=== PATIENT | female | born 1980 | race Caucasian/White ===

== ENCOUNTER 2022-02-14 14:28 | Emergency (ER) | payer BC, SELFPAY ==
[2022-02-14 16:27] VITALS: BP 123/68; PULSE 123; RESP 18; TEMP 38.4; O2SAT 98; BMI 26.2
--- NOTE | 2022-02-14 16:33 | ED_ITS ---
HPI - URI/Sore Throat General Chief Complaint: Upper Respiratory Symptoms Stated Complaint: cold/flu symptoms Time Seen by Provider: 02/14/22 16:31 Source: patient Mode of arrival: ambulatory Limitations: no limitations History of Present Illness HPI Narrative: 41-year-old female presents with 3 days of upper respiratory symptoms and 1 day of fevers. States that she has had positive flu contacts. She has body aches, fatigue, nausea, vomiting, and fevers. MD elicited complaint: fever, cough and nasal congestion Onset (ago): day(s) (3) Consistency: constant and progressively worsening Severity: moderate Description of mucous: clear Able to tolerate fluids by mouth: Yes Exacerbating factors: exertion Relieving factors: nothing Context: sick contacts Associated symptoms: fever, chills, voice changes, myalgias, headache, rhinorrhea, nasal congestion, sore throat, cough, nausea and vomiting Treatments prior to arrival: none Related Data Previous Rx's Medication Instructions Recorded ondansetron 4 mg disintegrating 4 mg PO Q8H PRN nausea and 02/15/22 tablet vomiting #20 tabs Allergies Allergy/AdvReac Type Severity Reaction Status Date / Time codeine Allergy Anaphylaxis Verified 02/14/22 16:44 Review of Systems Review of Systems: Constitutional: positive Fever, positive Chills, positive fatigue, positive Malaise ENT/Mouth: positive sore throat, positive runny nose Eyes: No Discharge Cardiovascular: No Chest Pain, No SOB Respiratory: Positive Cough, No Sputum, No Wheezing, No Dyspnea Gastrointestinal: Positive Nausea, positive Vomiting, No Diarrhea Musculoskeletal: positive Myalgia Skin: No rash Neuro: Positive Headache Yes all other systems are reviewed and are negative PMFSH Past Medical History Attestation statement: The following information was validated with the patient. Source: old records reviewed Medical History No known health problems Social History Social History Advance Directives: No Advance Directives Information Provided: Yes Patient : No Physical Exam Vital Signs: Vital Signs: Last Vital Signs Temp 101.1 F H 02/14/22 16:27 Pulse 123 H 02/14/22 16:27 Resp 18 02/14/22 16:27 BP 123/68 02/14/22 16:27 Pulse Ox 98 01/06/23 16:27 O2 Del Method 02/14/22 16:27 BMI result Body Mass Index 26.2 Appearance: Alert. Oriented X3. Moderate distress. Febrile Eyes: Pupils equal, round and reactive to light. ENT: Pharynx normal. Neck: Normal inspection. Neck supple. CVS: Tachycardic heart rate and rhythm. Pulses normal. Respiratory: No respiratory distress. Breath sounds normal. Abdomen: Soft and nontender. Skin: Skin warm and dry. Normal skin color. Normal skin turgor. Extremities: Gait balanced and coordinated Neuro: No motor deficit. No sensory deficit. Cranial nerves 2-12 intact Course Course Course Narrative: 41-year-old female presents for 3 days of upper respiratory symptoms consistent with influenza a with influenza A contacts. Patient is tachycardic and febrile, most likely viral, will order Tylenol. 17:21 patient discharged home, will call her with her results. Patient influenza positive. Medications Administered Discontinued Medications Generic Name Dose Route Start Last Admin Trade Name Freq PRN Reason Stop Dose Admin Acetaminophen 650 mg 02/14/22 16:34 02/14/22 16:41 Acetaminophen 325 Mg Tablet PO 02/14/22 16:35 650 mg ONCE ONE Administration Medical Decision Making Differential Diagnosis Differential Diagnoses: The differential diagnosis associated with the presentation includes COVID influenza RSV pneumonia Lab Data [facility] Lab Attestation statement: I reviewed the patient's lab results. Labs: Lab Results 02/14/22 Range/Units 16:38 Influenza Type A (PCR) POSITIVE A (Negative) Influenza Type B (PCR) NEGATIVE (Negative) RSV RNA Qual (PCR) NEGATIVE (Negative) SARS-CoV-2 RNA (RT-PCR) NEGATIVE (Negative) Discharge Plan Discharge Clinical Impression: Influenza, Viral infection Patient Disposition: Home, Self-Care Instructions: Influenza (ED), Viral Syndrome (ED) Additional Instructions: You were evaluated for upper respiratory symptoms. Your test results are pending. I will call you with your results. Please treat yourself as if your influenza positive, as you had multiple influenza contacts. Drink plenty of fluids. Alternate Tylenol 650 mg every 6 hours and Motrin 600 mg every 6 hours as needed for pain and fever management. Consider taking these medications 3 hours apart so you have pain and fever management every 3 hours. Write down what time you take these medications to prevent accidental overdose. Thank you for choosing this emergency department for evaluation. Please follow-up with primary care physician as needed. Return to the emergency department for any new, concerning, or worsening symptoms. Prescriptions: New ondansetron 4 mg tablet,disintegrating 4 mg PO Q8H PRN (Reason: nausea and vomiting) Qty: 20 0RF Stand Alone Forms: Work/School Release Interventions: ED Discharge Assessment Last Done: 02/14/22 17:45 Discharge Date/Time: 02/14/22 17:46
[2022-02-14] MEDS: Acetaminophen 325 MG TABLET 650 MG PO (16:41)
[2022-02-14 17:45] LABS: Influenza A PCR POSITIVE (Negative); Influenza B PCR NEGATIVE (Negative); Resp Syncy Virus RNA Qual PCR NEGATIVE (Negative); SARS COV2 PCR INHOUSE NEGATIVE (Negative)
== END 2022-02-14 17:46 | disposition home or self-care (01) ==
PROVIDERS: Emergency Provider Emergency Medicine
DX: J10.1 Influenza due to other identified influenza virus with other respiratory manifestations (principal); R50.9 Fever, unspecified; M79.10 Myalgia, unspecified site; R05.9 Cough, unspecified; R51.9 Headache, unspecified; Z20.822 Contact with and (suspected) exposure to COVID-19; Z20.828 Contact with and (suspected) exposure to other viral communicable diseases
CPT/HCPCS: 0241U; 99283

== ENCOUNTER 2024-03-02 06:59 | Emergency (ER) | payer OTHER, BC, SELFPAY ==
[2024-03-02 07:17] VITALS: BP 132/86; PULSE 106; RESP 16; TEMP 36.8; O2SAT 97; BMI 24.4
--- OUTSIDE RECORDS SUMMARY | 2024-03-02 09:31 | XMS_ITS | Clinical Summary ---
Author Organization [facility] it Address [address] [place] [address] Care Team Providers Care Title Checker Name Role Phone Judy Luz MD Primary Care Provider [phone] Allergies Active Allergy Reactions Criticality Noted Date Comments Codeine Phosphate Hives 03/23/2007 Hydrocodone-Acetaminophen Hives,Other,Rash Medium 10/2017 Lamotrigine Hives,Rash Medium 11/17/2017 Medications Medication Sig Dispensed Refills Start Date End Date Status LEVONORGESTREL UTRN by Intrauterine route. Active triamcinolone (KENALOG) 0.1 % cream APPLY THIN LAYER TOPICALLY TO THE AFFECTED AREA TWICE DAILY 12/26/2020 Active Active Problems Problem Noted Date Diagnosed Date Overweight (BMI 25.0-29.9) 11/15/2020 Endometriosis 10/29/2020 Hyperlipidemia 10/29/2020 Insomnia 12/24/2017 Varicose veins of both lower extremities 018 Tobacco use disorder 01/16/2016 Generalized anxiety disorder 10/17/2015 Chronic back pain 10/29/2012 Overview (01/04/2024): Seen by [facility] dr REBOLLEDO.recommended dr steele Abdominal hernia 08/26/2011 Seizure 02/19/2011 Depression 03/23/2007 Overview (01/04/2024): Dr kurtz previous pcp. Does not see psych Immunizations Name Administration Dates Next Due Influenza trivalent, with preservative (Fluzone; Afluria) 6mo and older 12/12/2015,01/14/2012 PPD Test 06/03/2011, 1,04/30/2009,2008 Tdap Tetanus diptheria acell ular pertussis (Boostrix; Adacel) 7yo and older 02/11/2019,04/04/2008 Surgical History Surgery Date Site/Laterality Comments KNEE SURGERY 2017 PROCEDURE: HISTORICAL KNEE SURGERY; COMMENT: dr balderas () SECTION 2004 PROCEDURE: [place] DELIVERY ONLY NASAL SEPTUM SURGERY 07/2008 PROCEDURE: [place] SEPTOPLASTY/SUBMUCOUS RESECJ W/WO CARTILAGE GRF; COMMENT: [facility] OTHER SURGICAL HISTORY 2007 PROCEDURE: LAPAROSCOPY PROCEDURE NEC; COMMENT: for endometriosis by Dr Rodriguez EYE SURGERY 1991 PROCEDURE: HISTORICAL EYE SURGERY Medical History Medical History Date Comments ADHD (attention deficit hype ractivity disorder) DX:ADHD (attention deficit hyperactivity disorder); COMMENT: Sees Dr Bartolome Bridges Psych Endometriosis 2006 DX:Endometriosis ; COMMENT: laproscopy by Dr Rodriguez Seizure disorder ([facility]) DX:Se izure disorder ([facility]); COMMENT: as child until age 14 no seizures since Hyperlipidemia 10/29/2020 DX:Hyperlipidemi a Endometriosis 10/29/2020 DX:Endometriosis Family History Medical History Relation Name Comments Breast cancer Aunt 1 paternal plus 3 GREAT a unts Other: blood cancer Aunt 2 paternal Coronary artery disease Father DM, HTN, hyperthyroid, COPD, lung CA, CHF Breast cancer Father's side 1st cousin Heart attack Maternal Grandfather Colon cancer Maternal Grandmother COPD Thyroid disease Mother colon polyps (?number), skin cancer (?type) Heart attack Paternal Grandfather fatal Alzheimer's disease Paternal Grandmother Lung cancer Uncle maternal Relation Name Status Comments Aunt 1 paternal Alive Aunt 2 paternal Alive Brother x 1 Alive Father (Age 56) Father's side 1st cousin Alive Maternal Grandfather Maternal Grandmother Mother Alive Paternal Grandfather Paternal Grandmother Uncle maternal Social History Tobacco Use Types Packs/Day Years Used Date Smoking Tobacco: Every Day Smokeless Tobacco: Current Alcohol Use Standard Drinks/Week Comments Yes 0 (1 standard drink = 0.6 oz pur e alcohol) Sex and Gender Information Value Date Recorded Sex Assigned at Not on file Gender Identity Not on file Sexual Orientation Not on file Obstetrics History Last Filed Vital Signs Vital Sign Reading Time Taken Comments Blood Pressure 110/80 02/26/2023 10:35 AM EST C Pulse 65 02/26/2023 10:35 AM EST Temperature - - Respiratory Rate - - Oxygen Saturation 99% 04/12/2021 8:44 AM EST RA Inhaled Oxygen Concentration - - Weight 68.9 kg (152 lb) 02/26/2023 10:35 AM EST Height 170.2 cm (5' 7 ) 02/26/2023 10:35 AM EST Body Mass Index 23.81 02/26/2023 10:35 AM EST Plan of Treatment Upcoming Encounters Date Type Department Care Team (Late st Contact Info) Description 03/21/2024 8:00 AM EST Office Visit Adult Medicine [facility] [address] [place] [address] Rama Payan PA [address] [place] [address] Health Maintenance Due Date Last Done Comments Breast Cancer Screening 1982 Pneumococcal Vaccine: Pediatrics (0 to 5 Years) and At-Risk Patients (6 to 64 Years) (1 of 2 - PCV) 1988 Hepatitis B Vaccines (1 of 3 - 19+ 3-dose series) 2001 Depression Screening 01/11/2022 HIV Screening 01/11/2022 Social Influencers of Health Screening 01/11/2022 COVID-19 Vaccine ( - 2023-2 5 season) 2023 06/15/2020, 05/25/2020 Influenza Vaccine (#1) 2023 6, 01/14/2012 Cervical Cancer Screening: HPV 07/19/2024 07/20/2019 Cholesterol Screening (Lipid Panel) 02/28/2028 02/27/2023 DTaP,Tdap,and Td Vaccines (3 - Td or Tdap) 02/11/2029 02/11/2019, 04/04/2008 Hepatitis C Screening Completed 05/02/2009 HIB Vaccines Aged Out No longer eligi ble based on patient's age to complete this topic HPV Vaccines Aged Out No longer eligi ble based on patient's age to complete this topic Hepatitis A Vaccines Aged Out No long er eligible based on patient's age to complete this topic IPV Vaccines Aged Out No longer eligi ble based on patient's age to complete this topic MMR Vaccines Aged Out No longer eligi ble based on patient's age to complete this topic Meningococcal ACWY Vaccine Aged Out N o longer eligible based on patient's age to complete this topic RSV Immunization Patients Under 20 months Aged Out No longer eligible b ased on patient's age to complete this topic Varicella Vaccines Aged Out No longer eligible based on patient's age to complete this topic Procedures Procedure Name Priority Date/Time Associated Diagnosis Comments LIPID PANEL Routine 02/27/2023 HPV Routine 07/20/2019 HEPATITIS C SCREENING Routine 05/02/2009 from Last 3 Months or Most Recently Relevant to Health Maintenance Results * (ABNORMAL) Lipid panel (02/27/2023) Pathologist [facility] LDL/HDL Ratio 5(A) 0 - 4 Triglycerides 150 0 - 150 mg/dL Cholesterol 215(A) 0 - 200 mg/dL HDL 40 40 mg/dL LDL Cholesterol 145(A) 0 - 100 mg/dL Blood Venous blood specimen / Unknown Historical Provider LAB BLOOD ORDERAB LES * Cervical Cancer Screening: HPV (07/20/2019) Pathologist [facility] Cervical Cancer Screening: HPV positive, abstracted Historical Provider MD ALEXANDER Zavala * Hepatitis C Screening (05/02/2009) Pathologist [facility] Hepatitis C Screening abstracted Historical Provider MD ALEXANDER Zavala from Last 3 Months or Most Recently Relevant to Health Maintenance Care Teams Title Checker Relationship Specialty Start Date End Date Judy Luz MD [address] [place] [address] PCP - General Internal Medicine 10/25/20
== END 2024-03-02 09:57 | disposition left against medical advice (07) ==
PROVIDERS: Emergency Provider Emergency Medicine
DX: M79.644 Pain in right finger(s) (principal)
CPT/HCPCS: 99281